=== PATIENT | male | born 1965 | race Hispanic/Latino ===

== ENCOUNTER 2017-04-02 08:49 | Emergency (ER) | payer OTHER, SELFPAY ==
[2017-04-02] MEDS ORDERED: Iopamidol 370 76% 100 ML VIAL ONE (09:00)
--- NOTE | 2017-04-02 10:02 | RAD ---
PA AND LATERAL VIEWS OF CHEST: Date: 04/02/17 HISTORY: Cough. FINDINGS: Comparison made with exam of 12/04/10. The heart is enlarged. Old right-sided rib fractures are present. No lobar consolidation, pneumothora roselyn, or pleural effusions are seen. There are increased markings in the left lung base. The possibili ty of these representing early/developing pneumonia cannot be excluded. POS: [facility]
[2017-04-02] MEDS ORDERED: Ketorolac Tromethamine 30 MG/ML VIAL ONE (10:57)
[2017-04-02 11:05] LABS: #Lymphocytes 0.7 thou/uL (1.20-3.40); #Monocytes 1.5 thou/uL (0.11-0.59); #Neutrophils 7.6 thou/uL (1.40-6.50); %Basophils 0.5 % (0.0-1.0); %Eosinophils 0.1 % (0.0-10.0); %Lymphocytes 8.3 % (21.0-51.0); %Monocytes 5.2 % (0.0-10.0); %Neutrophils 86.6 % (42.0-75.0); Hemoglobin 16.9 g/dL (14.0-18.0); Mean Corpuscular HGB CONC 34.5 g/dL (32.0-36.0); Mean Corpuscular Hemoglobin 28.8 pg (27.0-31.0); Mean Corpuscular Volume 83.4 fl (80.0-94.0); Mean Platelet Volume 8.3 fL (7.4-10.4); Platelet Count 251 thou/uL (130-400); RBC Distribution Width 11.6 % (11.5-14.5); Red Blood Cell (RBC) Count 5.86 mill/uL (4.70-6.10); White Blood Cell (WBC) Count 8.8 thou/uL (4.8-10.8)
[2017-04-02 11:24] LABS: ALT (SGPT) 96 U/L (8-55); AST (SGOT) 81 U/L (5-34); Albumin 4.3 g/dL (3.5-5.0); Alkaline Phosphatase 94 U/L (40-150); Anion Gap 19 mmol/L (10-20); BUN (Urea Nitrogen) 11 mg/dL (8.9-20.6); Bilirubin, Total 0.5 mg/dL (0.2-1.2); Calc. Creatinine Clearance 0 mL/min (70-130); Calcium 9.1 mg/dL (7.8-10.44); Carbon Dioxide 21 mmol/L (22-29); Chloride 99 mmol/L (98-107); Estimated GFR-MDRD Greater than 90; Globulin 3.3 g/dL (2.4-3.5); Glucose 77 mg/dL (70-105); Protein, Total 7.6 g/dL (6.0-8.3); Sodium 135 mmol/L (136-145)
[2017-04-02] MEDS ORDERED: Sodium Chloride 0.9% 500 ML ONE (11:35)
--- NOTE | 2017-04-02 13:10 | CT ---
CT ANGIOGRAM OF CHEST: Date: 04/02/17 HISTORY: Dyspnea. Chest pain. COMPARISON: None. TECHNIQUE: CT angiogram of the chest is performed in the axial plane. Bilateral oblique and coronal and three-di mensional reformatted images are submitted for interpretation. FINDINGS: No mediastinal mass, lymphadenopathy, or hematoma. Heart is enlarged. No significant pericardial flui d. Visualized aorta has a normal caliber. No periaortic fat stranding. Limited evaluation of the pulmonary arterial system due to timing of bolus and motion degradation. No evidence of a filling defect in the main and proximal lobar pulmonary arteries. The remainder of the pulmonary arterial system cannot be assessed. Multiple splenules in the left upper quadrant are present. Questionable absent left kidney. Correlate clinically. Visualized liver demonstrates hypoattenuation suggesting hepatic steatosis. There are alveolar and interstitial opacities in the left upper lobe, left lower lobe, and right lowe r lobe. Multifocal infiltrate is suspected. Additional small focus of right perihilar interstitial an d alveolar opacification. Old bilateral rib fractures are identified. There is no pneumothorax. No si gnificant pleural fluid. IMPRESSION: 1. Limited and suboptimal evaluation of pulmonary arterial system due to motion degradation and poor timing of bolus. No obvious filling defect to level of proximal lobar arteries. 2. Multifocal opacities, suggesting multilobar pneumonia until proven otherwise. Continued surveilla nce is recommended. POS: [facility]
== END 2017-04-02 13:13 | disposition home or self-care (01) ==
LOC: NAV ERS 08:49
DX: J18.9 Pneumonia, unspecified organism (principal); I10 Essential (primary) hypertension; E11.9 Type 2 diabetes mellitus without complications; F41.9 Anxiety disorder, unspecified; Z79.84 Long term (current) use of oral hypoglycemic drugs; Z79.899 Other long term (current) drug therapy
CPT/HCPCS: 36416; 71046; 71275; 80053; 83605; 85025; 85379; 87804; 96374; J1885; J7050; J7620

== ENCOUNTER 2017-04-03 13:24 | Emergency (ER) | payer SELFPAY ==
[2017-04-03] MEDS ORDERED: Acetaminophen 500 MG TAB ONE (14:00)
== END 2017-04-03 14:00 | disposition home or self-care (01) ==
LOC: NAV ERS 13:24
DX: J18.9 Pneumonia, unspecified organism (principal); H72.93 Unspecified perforation of tympanic membrane, bilateral; E11.9 Type 2 diabetes mellitus without complications; F41.9 Anxiety disorder, unspecified; Z79.84 Long term (current) use of oral hypoglycemic drugs; Z79.899 Other long term (current) drug therapy
CPT/HCPCS: 99284